=== PATIENT | male | born 1990 | race Caucasian/White ===

== ENCOUNTER 2019-06-14 11:18 | Emergency (ER) | payer BC, SELFPAY ==
[2019-06-14 11:19] VITALS: BP 151/93; PULSE 82; RESP 18; TEMP 37; O2SAT 99; BMI 23.8
--- NOTE | 2019-06-14 11:20 | NURSING ---
NO OLD EKGS
--- NOTE | 2019-06-14 11:45 | RAD_ITS ---
STUDY: X-RAY CHEST REASON FOR EXAM: Male, 28 years old. Chest pain TECHNIQUE: Frontal view COMPARISON: None. FINDINGS: The lungs are clear and expanded. There is no demonstrated pleural abnormality. Normal size heart. Normal mediastinum and yanira. Normal visualized pulmonary arteries. Normal visualized aortic arch and descending thoracic aorta. Normal visualized thoracic spine. Normal visualized ribs, clavicles, and shoulders. There is no demonstrated abnormality of the visualized soft tissue structures of the upper abdomen. RAD/Chest 1 View (Portable) IMPRESSION: Normal x-ray examination of the chest. Electronically Signed: Nitin Mobley DO at 12:37 EST Tel [phone], Service support ,
--- NOTE | 2019-06-14 11:45 | EKG12_ITS ---
Test Reason : CP Blood Pressure : / mmHG Vent. Rate : 071 BPM Atrial Rate : 071 BPM P-R Int : 116 ms QRS Dur : 092 ms QT Int : 374 ms P-R-T Axes : 031 024 040 degrees QTc Int : 406 ms Normal sinus rhythm Normal ECG Confirmed by KECIA MENDIETA, MILO ([id number]), movie editor LU PFEIFFER ([id number]) on 06/16/2019 11:43:25 AM Referred By: QIANA/PRAKASH Confirmed By:MILO MCDONNELL MD
[2019-06-14 12:04] LABS: Absolute Lymphocyte Count 3.68 X10^3/uL (0.83-4.51); Basophil# 0.11 X10^3/uL; Eosinophil# 1.82 X10^3/uL; Eosinophils% 15.9 % (0-5); Hematocrit 46.6 % (40-54); Hemoglobin 16.3 g/dL (13.0-16.5); Lymphocyte # 3.68 X10^3/ul (4.0); Lymphocyte % 32.2 % (19-41); Mean Corpuscular Hgb 29.7 pg (27.0-32.0); Mean Platelet Vol. 8.7 fl (6.2-12.0); Monocyte# 0.75 X10^3/uL; Monocyte% 6.6 % (0-10); NRBC Flagged by Analyzer 0 % (0-5); Neutrophil # 5.04 X10^3/uL (2.7-7.7); Platelet Count 418 K/mm3 (150-450); RBC Distribution Width CV 11.9 % (11.6-14.6); RBC Distribution Width SD 36.6 fl (35.1-43.9); Red Blood Count 5.48 M/mm3 (4.6-6.2); White Blood Count 11.4 K/mm3 (4.4-11.0)
[2019-06-14] MEDS: Ketorolac 30 MG/ML Syringe IV (12:13)
[2019-06-14 12:16] VITALS: O2SAT 98
[2019-06-14 12:21] LABS: Anion Gap 7 (5-15); BUN 13 mg/dL (7-18); BUN/Creat Ratio 13.5 RATIO (10-20); Calcium,Total 9.1 mg/dL (8.5-10.1); Chloride 107 mmol/L (98-107); Creatinine, Serum 0.96 mg/dL (0.70-1.30); EST Glomerular Filtration Rate 100 mL/min (>60); Est Glom Filt Rate - Afr Amer 121 mL/min (>60); Estimated Creatinine Clearance 109.02 ml/min; Glucose 120 mg/dL (74-106); Potassium 3.9 mmol/L (3.5-5.1); Sodium Level 141 mmol/L (136-145)
--- NOTE | 2019-06-14 13:04 | ED.VIS.GEN ---
History of Present Illness Chief Complaint: Chest Pain Informant: Patient Onset: Weeks Context: Gradual Onset Timing: Intermittent Current Severity: Mild Maximum Severity: Moderate Narrative: Patient presents with chest pain shortness of breath that is been intermittent over the past 3 weeks. He states today seem to be the worst day. He did have a recent URI. Patient states he is better when he is hunched forward or when he lies on his right side. Patient has a family history of AL. Past Medical History - Allergies and Home Meds Allergies/Adverse Reactions: Allergies No Known Allergies Allergy (Verified 06/14/19 12:19) Primary Care Physician: Care Physician,No Primary [Primary Care Provider] - Past Medical History: None Lives: With Family Smoking Status: Never smoker Review of Systems General: Denies: Chills, Fever Eyes: Denies: Visual changes - bilaterally ENT: Denies: Bilateral ear pain Cardiovascular: Reports: Chest pain. Denies: Palpitations, Heart racing Respiratory: Reports: Dyspnea. Denies: Cough, Sputum Gastrointestinal: Denies: Abdominal pain, Nausea, Vomiting, Diarrhea Genitourinary: Denies: Dysuria Musculoskeletal: Denies: Extremity Pain Skin: Denies: Rash Neurological: Denies: Headache Hematologic: Denies: Easy bruising Allergy: Denies: Uticaria Physical Exam Vital Signs/Narrative: Vital Signs Temp Pulse Resp BP Pulse Ox 06/14/19 12:16 98 06/14/19 11:19 98.6 F 82 18 151/93 H 99 Inital Vital Signs reviewed: Yes General: Well nourished, Well developed Head: Normocephalic ENT: Moist mucous membranes Neck: Supple Cardiovascular: Regular rate, Regular rhythm Respiratory: No distress, CTA bilaterally, Chest tenderness - Mild chest tenderness over the left anterior ribs. No crepitus. Abdomen: Soft, Nontender Extremities: Nontender, No edema Skin: Normal color, No rash Neurological: Alert, Oriented x3, Normal Strength, Normal Sensation Psychological: Normal affect Diagnostic/Tx/Re-eval Impressions Chest X-Ray 06/14/19 11:45 IMPRESSION: Normal x-ray examination of the chest. Electronically Signed: Nitin Mobley DO at 12:37 EST Tel [phone], Service support , 06/14/19 11:45 Chest 1 View (Portable) [RAD] Stat Laboratory Results 06/14/19 06/14/19 11:55 11:55 WBC 11.4 H RBC 5.48 Hgb 16.3 Hct 46.6 MCV 85.0 MCH 29.7 MCHC 35.0 RDW Std Deviation 36.6 RDW Coeff of Valeria 11.9 Plt Count 418 MPV 8.7 Immature Gran % (Auto) 0.300 Neut % (Auto) 44.0 L Lymph % (Auto) 32.2 [place] % (Auto) 6.6 Eos % (Auto) 15.9 H Baso % (Auto) 1.0 Absolute Neuts (auto) 5.0 Absolute Lymphs (auto) 3.68 Nucleated RBC % 0 Sodium 141 Potassium 3.9 Chloride 107 Carbon Dioxide 27.0 Anion Gap 7 BUN 13 Creatinine 0.96 Estim Creat Clear Calc 109.02 Est GFR (MDRD) Af Amer 121 Est GFR (MDRD) Non-Af 100 BUN/Creatinine Ratio 13.5 Glucose 120 H Calcium 9.1 Troponin I < 0.015 - EKG Initial EKG Interpretation: Sinus Rhythm - Sinus at 71 with no acute ischemia. - Medical Decision Making Patient was given a dose of IV Toradol here. On repeat evaluation he is resting comfortably. I discussed with him that my suspicion is is costochondritis with recent URI. There is no evidence of cardiac or pulmonary condition causing his symptoms. He will be treated with a course of prednisone. He will follow with his primary care physician at [facility]. ED Disposition - Plan for ED Patient: Disposition: Home or Assisted Living Diagnosis: Atypical chest pain Instructions: CHEST WALL PAIN, Costochondritis Prescriptions: Prednisone [Deltasone] 40 mg PO DAILY #10 tab Prescription Printed Referrals: Care Physician,No Primary [Primary Care Provider] - Additional Instructions: Follow-up at [facility] if not improving in 5-7 days.
[2019-06-14 13:11] VITALS: BP 126/74; PULSE 85; RESP 15; O2SAT 98
== END 2019-06-14 13:16 | disposition home or self-care (01) ==
PROVIDERS: Emergency Provider Emergency Medicine
DX: R07.89 Other chest pain (principal); R06.00 Dyspnea, unspecified; Z82.49 Family history of ischemic heart disease and other diseases of the circulatory system
CPT/HCPCS: 71045; 80048; 84484; 85025; 93005; 96374; 99284; A4216

== ENCOUNTER 2021-08-16 15:10 | Outpatient (CLI) | payer BC, SELFPAY | END 2021-08-16 23:59 | disposition short-term general hospital (02) | LOC: LABSPEC 15:11 | PROVIDERS: Referring Provider Physician Assistant; Visit Provider Physician Assistant | DX: U07.1 COVID-19 (principal) | CPT/HCPCS: 87635; U0003; U0005 ==